=== PATIENT | male | born 1960 | race Hispanic/Latino ===

== ENCOUNTER → 2017-11-22 | Outpatient (CLI) | payer BC ==
[~2017-11-22] MED LIST: ADVAIR 250-501 EACH IH; ALBUTEROL2.5 MG/0.5 INH; ALIGN4 MG PO; AMLODIPINE BESYL5 MG PO; ATORVASTATIN CA10 MG PO; BACTRIM DS TAB1 EACH PO; CALCIUM CITRAT200 MG PO; COMBIVENT RESPIM4 GM IH; FLONASE16 GM; IPRAT-ALBUT 0.5-3 ML INH; LEVAQUIN750 MG PO; MAGNESIUM OXID400 MG PO; NORCO 5-325 TA1 EACH PO; PREDNISONE10 MG PO; RANITIDINE HCL150 MG PO; VITAMIN C1000 MG PO; ZINC SULFATE220 MG PO
--- NOTE | 2017-11-22 17:41 | Diagnostic Imaging Report ---
PROCEDURE:X-RAY LEFT KNEE, THREE OR MORE VIEWS COMPARISON:None. INDICATIONS:LEFT KNEE PAIN FINDINGS: The bones are well-mineralized. Mild medial and patellofemoral compartment degenerative changes with joint spurring. There are no fractures, subluxations, lytic or blastic lesions. There is no evidence of a joint effusion. CONCLUSION: Mild medial and patellofemoral compartment degenerative changes. No acute osseous abnormalities. Dictated by: Esau Martinez M.D. on 11/22/2017 at 17:40 Electronically approved by: Esau Martinez M.D. on 11/22/2017 at 17:40
== END ==
LOC: RAD 16:03
PROVIDERS: ATTEND Family Medicine
DX: M23.8X2 Other internal derangements of left knee (principal)

== ENCOUNTER 2020-08-21 17:26 | Inpatient (IN) | payer BC ==
[~2020-08-21] VITALS: Ht 185.4 cm; Wt 116.1 kg
[2020-08-21] MEDS ORDERED: MORPHINE SULFATE 2 MG/ML SYR 1ML IV STA (17:44)
[2020-08-21] MEDS ORDERED: ONDANSETRON HCL INJ 2MG/ML 2ML 2 MG/ML VIAL IV STA (17:44)
[2020-08-21 18:04] LABS: BASOPHILS # (AUTO) 0.1 (0.0-0.1); BASOPHILS % 0.4 % (0.0-1.0); EOSINOPHILS # (AUTO) 0.1 (0.0-0.4); HEMATOCRIT 44.9 % (38.2-49.6); HEMOGLOBIN 14.9 g/dL (14.0-18.0); LYMPHOCYTES # (AUTO) 1.2 (1.0-3.2); LYMPHOCYTES % 10.2 % (18.0-39.1); MEAN CORPUSCULAR HEMOGLOBIN 30.2 pg (28-32); MEAN CORPUSCULAR HGB CONC 33.2 g/dL (31-35); MEAN CORPUSCULAR VOLUME 90.9 fL (81-99); MONOCYTES # (AUTO) 0.1 (0.2-0.8); MONOCYTES % 1.2 % (4.4-11.3); NEUTROPHILS # (AUTO) 9.9 (2.1-6.9); NEUTROPHILS % 86.7 % (38.7-80.0); PLATELET COUNT 185 x10e3/uL (140-360); RED BLOOD COUNT 4.94 x10e6/uL (4.3-5.7); RED CELL DISTRIBUTION WIDTH 14.5 % (11.7-14.4)
[2020-08-21 18:09] LABS: INR 2.22; PARTIAL THROMBOPLASTIN TIME 26.7 seconds (23.8-35.5); PROTHROMBIN TIME 25.7 seconds (11.9-14.5)
[2020-08-21 18:17] LABS: ALANINE AMINOTRANSFERASE 22 IU/L (0-55); ALBUMIN 4.1 g/dL (3.5-5.0); ALKALINE PHOSPHATASE 94 IU/L (40-150); ANION GAP 16.6 mmol/L (8-16); BLOOD UREA NITROGEN 17 mg/dL (7-26); BUN/CREATININE RATIO 16 (6-25); CALCIUM 8.8 mg/dL (8.4-10.2); CARBON DIOXIDE 21 mmol/L (22-29); CHLORIDE 105 mmol/L (98-107); CREATININE, SERUM 1.06 mg/dL (0.72-1.25); EST GLOMERULAR FILTRATION RATE > 60 ML/MIN (60-); GLUCOSE 112 mg/dL (74-118); POTASSIUM 3.6 mmol/L (3.5-5.1); SODIUM 139 mmol/L (136-145)
[2020-08-21] MEDS ORDERED: HYDROMORPHONE 1MG/1ML INJ IV STA (19:42)
[2020-08-21 19:43] LABS: CLARITY,URINE HAZY (CLEAR); COLOR,URINE YELLOW (YELLOW)
[2020-08-21 19:44] LABS: BACTERIA,URINE MANY /HPF; EPITHELIAL CELLS,URINE MANY /LPF; KETONES,URINE NEGATIVE (NEGATIVE); LEUKOCYTE ESTERASE ,URINE NEGATIVE (NEGATIVE); MUCUS,URINE FEW (RARE); NITRITE,URINE POSITIVE (NEGATIVE); PROTEIN,URINE DIPSTICK NEGATIVE (NEGATIVE); RBC,URINE >50 /HPF (0-5); URINE UROBILINOGEN 0.2 mg/dL (0.2 - 1)
[2020-08-21 19:46] LABS: WBC,URINE (MAN) 21-50 /HPF (0-5)
[2020-08-21] MEDS ORDERED: ONDANSETRON HCL INJ 2MG/ML 2ML 2 MG/ML VIAL IV PRN (20:00)
[2020-08-21] MEDS ORDERED: PIPER-TAZ 3.375 GM 0 ML ONE (20:00)
[2020-08-21] MEDS ORDERED: CEFTRIAXONE SOD 1 GM/NS 50 ML 50 ML IV ONE (20:03)
[2020-08-21] MEDS: CEFTRIAXONE SOD 1 GM/NS 50 ML 50 ML IV SCH (20:04)
[2020-08-21] MEDS: SODIUM CHLORIDE 0.9% 1000ML 1,000 ML IV SCH (20:04)
[2020-08-21] MEDS ORDERED: SODIUM CHLORIDE 0.9% 1000ML 1,000 ML ONE (20:07)
[2020-08-21] MEDS: ACETAMINOPHEN 325 MG TAB PO PRN (20:28)
[2020-08-21] MEDS ORDERED: ACETAMINOPHEN 325 MG TAB ONE (20:33)
[2020-08-21 22:40] VITALS: BP 122/79
[2020-08-21 22:55] VITALS: BP 122/79
[2020-08-21] MEDS: HYDROMORPHONE 1MG/1ML INJ IV PRN (22:57)
[2020-08-21] MEDS ORDERED: WARFARIN SODIUM3 MG PO (23:13)
[2020-08-21] MEDS ORDERED: LOSARTAN POTASS25 MG PO (23:13)
[2020-08-21] MEDS ORDERED: WARFARIN SODIU2.5 MG PO (23:13)
[2020-08-22] VITALS (9 sets, daily range): BP systolic 85–128; BP diastolic 54–82
[2020-08-22] MEDS ORDERED: IPRATROPIUM/ALBUTEROL SULFATE 4 GM INH INH PRN (03:45)
[2020-08-22] MEDS: HYDROMORPHONE 1MG/1ML INJ IV PRN ×3 (03:59→14:18)
[2020-08-22] MEDS: SODIUM CHLORIDE 0.9% 1000ML 1,000 ML IV SCH ×2 (04:40→14:19)
[2020-08-22 05:31] LABS: BASOPHILS % 0.3 % (0.0-1.0); EOSINOPHILS % 0.2 % (0.0-6.0); HEMATOCRIT 40.5 % (38.2-49.6); HEMOGLOBIN 13.4 g/dL (14.0-18.0); LYMPHOCYTES # (AUTO) 0.5 (1.0-3.2); LYMPHOCYTES % 4.8 % (18.0-39.1); MEAN CORPUSCULAR HGB CONC 33.1 g/dL (31-35); MEAN CORPUSCULAR VOLUME 90.8 fL (81-99); MONOCYTES # (AUTO) 0.1 (0.2-0.8); MONOCYTES % 0.8 % (4.4-11.3); NEUTROPHILS # (AUTO) 10.4 (2.1-6.9); NEUTROPHILS % 93.5 % (38.7-80.0); PLATELET COUNT 136 x10e3/uL (140-360); RED BLOOD COUNT 4.46 x10e6/uL (4.3-5.7); RED CELL DISTRIBUTION WIDTH 14.9 % (11.7-14.4)
[2020-08-22 05:45] LABS: INR 2.4; PROTHROMBIN TIME 27.3 seconds (11.9-14.5)
[2020-08-22 05:46] LABS: PARTIAL THROMBOPLASTIN TIME 35.4 seconds (23.8-35.5)
[2020-08-22 05:54] LABS: ALBUMIN 3.1 g/dL (3.5-5.0); ALBUMIN/GLOBULIN RATIO 0.9 (0.8-2.0); ANION GAP 17.1 mmol/L (8-16); CREATININE, SERUM 1.36 mg/dL (0.72-1.25); POTASSIUM 4.1 mmol/L (3.5-5.1)
[2020-08-22 07:51] LABS: BAND NEUTROPHILS % (MANUAL) 9 %; EOSINOPHILS % (MANUAL) 1 % (0-7); LYMPHOCYTES % (MANUAL) 4 % (19-48); METAMYELOCYTES % (MANUAL) 4 % (0-0); NEUTROPHILS % (MANUAL) 82 % (40-74); PLATELET ESTIMATE SLIGHTLY DECREASED; PLATELET MORPHOLOGY COMMENT NORMAL
[2020-08-22 07:52] LABS: RBC MORPHOLOGY COMMENT NORMAL
[2020-08-22] MEDS: SALMETEROL/FLUTICASONE 250/50 INH SCH ×2 (09:00→17:00)
[2020-08-22] MEDS: ACETAMINOPHEN 325 MG TAB PO PRN (19:22)
[2020-08-22] MEDS: CEFTRIAXONE SOD 1 GM/NS 50 ML 50 ML IV SCH (19:24)
[2020-08-22] MEDS: ATORVASTATIN 10 MG TAB PO SCH (20:25)
[2020-08-23] VITALS (7 sets, daily range): BP systolic 90–111; BP diastolic 58–77
[2020-08-23] MEDS: SODIUM CHLORIDE 0.9% 1000ML 1,000 ML IV SCH ×2 (02:00→13:00)
[2020-08-23] MEDS ORDERED: SODIUM CHLORIDE 0.9% 500ML 500 ML IV STA (03:51)
[2020-08-23 04:51] LABS: BASOPHILS % 0.1 % (0.0-1.0); EOSINOPHILS # (AUTO) 0.1 (0.0-0.4); EOSINOPHILS % 0.3 % (0.0-6.0); HEMATOCRIT 36.8 % (38.2-49.6); HEMOGLOBIN 11.9 g/dL (14.0-18.0); LYMPHOCYTES # (AUTO) 1.1 (1.0-3.2); LYMPHOCYTES % 3.8 % (18.0-39.1); MEAN CORPUSCULAR HEMOGLOBIN 30.4 pg (28-32); MEAN CORPUSCULAR HGB CONC 32.3 g/dL (31-35); MEAN CORPUSCULAR VOLUME 93.9 fL (81-99); MONOCYTES # (AUTO) 0.5 (0.2-0.8); MONOCYTES % 1.7 % (4.4-11.3); PLATELET COUNT 91 x10e3/uL (140-360); RED BLOOD COUNT 3.92 x10e6/uL (4.3-5.7); RED CELL DISTRIBUTION WIDTH 15.7 % (11.7-14.4)
[2020-08-23 05:44] LABS: ALBUMIN 2.6 g/dL (3.5-5.0); ALBUMIN/GLOBULIN RATIO 0.7 (0.8-2.0); MAGNESIUM 1.4 MG/DL (1.3-2.1)
[2020-08-23 05:48] LABS: CREATININE, SERUM 2.83 mg/dL (0.72-1.25)
[2020-08-23 08:36] LABS: INR 2.32; PROTHROMBIN TIME 26.6 seconds (11.9-14.5)
[2020-08-23 08:37] LABS: PARTIAL THROMBOPLASTIN TIME 51.1 seconds (23.8-35.5)
[2020-08-23] MEDS: SALMETEROL/FLUTICASONE 250/50 INH SCH ×2 (09:00→16:28)
[2020-08-23 09:14] LABS: BAND NEUTROPHILS % (MANUAL) 16 %; LYMPHOCYTES % (MANUAL) 4 % (19-48); MONOCYTES % (MANUAL) 1 % (3.4-9.0); NEUTROPHILS % (MANUAL) 79 % (40-74)
[2020-08-23 09:15] LABS: ANISOCYTOSIS SLIGHT; PLATELET ESTIMATE SLIGHTLY DECREASED; PLATELET MORPHOLOGY COMMENT NORMAL; RBC MORPHOLOGY COMMENT NORMAL
[2020-08-23] MEDS ORDERED: PHYTONADIONE 10 MG/ML AMP SQ ONE (10:15)
[2020-08-23] MEDS: ATORVASTATIN 10 MG TAB PO SCH (20:38)
[2020-08-23] MEDS: CEFTRIAXONE SOD 1 GM/NS 50 ML 50 ML IV SCH (20:38)
[2020-08-24] VITALS (8 sets, daily range): BP systolic 93–121; BP diastolic 55–88
[2020-08-24] MEDS: SODIUM CHLORIDE 0.9% 1000ML 1,000 ML IV SCH ×3 (01:00→15:48)
[2020-08-24] MEDS ORDERED: SODIUM CHLORIDE 0.9% 1000ML 1,000 ML IV ONE (04:45)
[2020-08-24 05:01] LABS: BASOPHILS # (AUTO) 0.1 (0.0-0.1); BASOPHILS % 0.5 % (0.0-1.0); EOSINOPHILS # (AUTO) 0.1 (0.0-0.4); EOSINOPHILS % 0.4 % (0.0-6.0); HEMATOCRIT 33.8 % (38.2-49.6); HEMOGLOBIN 11.5 g/dL (14.0-18.0); LYMPHOCYTES # (AUTO) 1.2 (1.0-3.2); LYMPHOCYTES % 4.6 % (18.0-39.1); MEAN CORPUSCULAR VOLUME 88.3 fL (81-99); MONOCYTES # (AUTO) 0.5 (0.2-0.8); MONOCYTES % 1.9 % (4.4-11.3); NEUTROPHILS # (AUTO) 23.8 (2.1-6.9); PLATELET COUNT 76 x10e3/uL (140-360); RED BLOOD COUNT 3.83 x10e6/uL (4.3-5.7); RED CELL DISTRIBUTION WIDTH 15.6 % (11.7-14.4)
[2020-08-24 05:15] LABS: INR 1.41
[2020-08-24 05:25] LABS: ALBUMIN 2.3 g/dL (3.5-5.0); ALBUMIN/GLOBULIN RATIO 0.7 (0.8-2.0); ANION GAP 13.5 mmol/L (8-16); CALCIUM 8.4 mg/dL (8.4-10.2); CREATININE, SERUM 1.57 mg/dL (0.72-1.25); POTASSIUM 3.5 mmol/L (3.5-5.1)
[2020-08-24] MEDS ORDERED: PHYTONADIONE 1 MG/0.5 ML AMP SQ ONE (05:30)
[2020-08-24] MEDS ORDERED: PHYTONADIONE 10 MG/ML AMP SC ONE (05:45)
[2020-08-24 06:31] LABS: EOSINOPHILS % (MANUAL) 1 % (0-7); LYMPHOCYTES % (MANUAL) 6 % (19-48); MONOCYTES % (MANUAL) 4 % (3.4-9.0); NEUTROPHILS % (MANUAL) 89 % (40-74)
[2020-08-24 06:32] LABS: ANISOCYTOSIS SLIGHT; PLATELET ESTIMATE MODERATELY DECREASED; PLATELET MORPHOLOGY COMMENT NORMAL; RBC MORPHOLOGY COMMENT NORMAL
[2020-08-24] MEDS ORDERED: SODIUM CHLORIDE 0.9% 250ML 250 ML ONE (08:31)
[2020-08-24] MEDS ORDERED: IOPAMIDOL 300MG/ML 100 ML INFUS..BTL IV ONE (08:31)
[2020-08-24] MEDS ORDERED: LIDOCAINE HCL 1% LOCAL INJ 20 ML VIAL ONE (08:31)
[2020-08-24] MEDS: SALMETEROL/FLUTICASONE 250/50 INH SCH ×2 (09:00→15:48)
[2020-08-24] MEDS ORDERED: FENTANYL CITRATE/PF 100MCG/2 ML INJ ONE (09:03)
[2020-08-24] MEDS ORDERED: MIDAZOLAM HCL 2 MG/2 ML VIAL ONE (09:03)
[2020-08-24 10:49] LABS: CLARITY,URINE TURBID (CLEAR); COLOR,URINE RED (YELLOW); LEUKOCYTE ESTERASE ,URINE 2+ (NEGATIVE); NITRITE,URINE NEGATIVE (NEGATIVE)
[2020-08-24 10:50] LABS: KETONES,URINE NEGATIVE (NEGATIVE); PROTEIN,URINE DIPSTICK 3+ (NEGATIVE); URINE UROBILINOGEN 0.2 mg/dL (0.2 - 1)
[2020-08-24 10:53] LABS: BACTERIA,URINE FEW /HPF; RBC,URINE >50 /HPF (0-5); WBC,URINE (MAN) 21-50 /HPF (0-5)
[2020-08-24 12:23] LABS: INR 1.33; PROTHROMBIN TIME 17.1 seconds (11.9-14.5)
[2020-08-24] MEDS: HYDROMORPHONE 1MG/1ML INJ IV PRN (12:52)
[2020-08-24] MEDS: SODIUM BICARBONATE 650 MG TAB PO SCH (17:38)
[2020-08-24] MEDS: CEFTRIAXONE SOD 1 GM/NS 50 ML 50 ML IV SCH (20:42)
[2020-08-24] MEDS: ATORVASTATIN 10 MG TAB PO SCH (20:44)
[2020-08-25] VITALS (8 sets, daily range): BP systolic 132–141; BP diastolic 80–92
[2020-08-25] MEDS: SODIUM CHLORIDE 0.9% 1000ML 1,000 ML IV SCH ×2 (01:40→13:45)
[2020-08-25 03:18] LABS: CLARITY,URINE CLOUDY (CLEAR); COLOR,URINE YELLOW (YELLOW); KETONES,URINE NEGATIVE (NEGATIVE); LEUKOCYTE ESTERASE ,URINE SMALL (NEGATIVE); NITRITE,URINE NEGATIVE (NEGATIVE); PROTEIN,URINE DIPSTICK 2+ (NEGATIVE); URINE UROBILINOGEN 0.2 mg/dL (0.2 - 1)
[2020-08-25 03:22] LABS: BACTERIA,URINE FEW /HPF; EPITHELIAL CELLS,URINE RARE /LPF; RBC,URINE >50 /HPF (0-5)
[2020-08-25 03:32] LABS: CREATININE,URINE RANDOM 23.47 mg/dL (63-166); TOTAL PROTEIN, URINE 53.9 mg/dL (1-14)
[2020-08-25 05:16] LABS: BASOPHILS # (AUTO) 0.1 (0.0-0.1); BASOPHILS % 0.7 % (0.0-1.0); EOSINOPHILS # (AUTO) 0.2 (0.0-0.4); EOSINOPHILS % 1.7 % (0.0-6.0); HEMATOCRIT 38.2 % (38.2-49.6); HEMOGLOBIN 12.9 g/dL (14.0-18.0); LYMPHOCYTES # (AUTO) 1.3 (1.0-3.2); LYMPHOCYTES % 9.3 % (18.0-39.1); MEAN CORPUSCULAR HEMOGLOBIN 29.9 pg (28-32); MEAN CORPUSCULAR HGB CONC 33.8 g/dL (31-35); MEAN CORPUSCULAR VOLUME 88.6 fL (81-99); MONOCYTES # (AUTO) 0.9 (0.2-0.8); MONOCYTES % 6.5 % (4.4-11.3); NEUTROPHILS # (AUTO) 11.1 (2.1-6.9); NEUTROPHILS % 80.3 % (38.7-80.0); PLATELET COUNT 91 x10e3/uL (140-360); RED BLOOD COUNT 4.31 x10e6/uL (4.3-5.7); RED CELL DISTRIBUTION WIDTH 15.4 % (11.7-14.4)
[2020-08-25 05:50] LABS: ALANINE AMINOTRANSFERASE 29 IU/L (0-55); ALBUMIN 2.6 g/dL (3.5-5.0); ALBUMIN/GLOBULIN RATIO 0.7 (0.8-2.0); ALKALINE PHOSPHATASE 87 IU/L (40-150); ANION GAP 12.5 mmol/L (8-16); BLOOD UREA NITROGEN 19 mg/dL (7-26); BUN/CREATININE RATIO 27 (6-25); CALCIUM 8.7 mg/dL (8.4-10.2); CARBON DIOXIDE 21 mmol/L (22-29); CHLORIDE 110 mmol/L (98-107); CREATININE, SERUM 0.71 mg/dL (0.72-1.25); EST GLOMERULAR FILTRATION RATE > 60 ML/MIN (60-); GLUCOSE 116 mg/dL (74-118); POTASSIUM 3.5 mmol/L (3.5-5.1); SODIUM 140 mmol/L (136-145)
[2020-08-25] MEDS: SALMETEROL/FLUTICASONE 250/50 INH SCH ×2 (07:33→17:00)
[2020-08-25] MEDS: SODIUM BICARBONATE 650 MG TAB PO SCH ×2 (08:59→15:33)
[2020-08-25 11:17] LABS: EOSINOPHILS % (MANUAL) 1 % (0-7); LYMPHOCYTES % (MANUAL) 10 % (19-48); MONOCYTES % (MANUAL) 3 % (3.4-9.0); NEUTROPHILS % (MANUAL) 86 % (40-74); PLATELET ESTIMATE SLIGHTLY DECREASED; PLATELET MORPHOLOGY COMMENT RARE EDTA CLUMPING; RBC MORPHOLOGY COMMENT NORMAL
[2020-08-25] MEDS: ACETAMINOPHEN 325 MG TAB PO PRN (18:57)
[2020-08-25] MEDS: CEFTRIAXONE SOD 1 GM/NS 50 ML 50 ML IV SCH (20:34)
[2020-08-25] MEDS: ATORVASTATIN 10 MG TAB PO SCH (20:35)
[2020-08-26] VITALS: BP 156/95
[2020-08-26] MEDS ORDERED: LOSARTAN POTASSIUM 100 MG TAB PO ONE (01:15)
[2020-08-26] MEDS: SODIUM CHLORIDE 0.9% 1000ML 1,000 ML IV SCH ×2 (01:21→12:02)
[2020-08-26 04:00] VITALS: BP 122/84
[2020-08-26] MEDS: SALMETEROL/FLUTICASONE 250/50 INH SCH (07:05)
[2020-08-26 08:00] VITALS: BP 142/85
[2020-08-26] MEDS: SODIUM BICARBONATE 650 MG TAB PO SCH (08:29)
[2020-08-26 08:32] VITALS: BP 122/84
[2020-08-26 12:05] VITALS: BP 145/93
[2020-08-26] MEDS ORDERED: CEFUROXIME500 MG PO (14:04)
[2020-08-27] MEDS ORDERED: LOSARTAN POTASSIUM 100 MG TAB PO SCH (09:00)
== END 2020-08-26 15:51 | disposition home or self-care (01) | DRG 872 ==
LOC: ER 17:34 → ERHOLD 19:56 → MED/SURG 22:05
PROVIDERS: ADMIT Internal Medicine; ATTEND Internal Medicine
PROC: 0T9030Z Drainage of Right Kidney with Drainage Device, Percutaneous Approach (ICD-10-PCS; principal; 2020-08-24)
DX: A41.9 Sepsis, unspecified organism (principal); N20.1 Calculus of ureter; N39.0 Urinary tract infection, site not specified; N17.9 Acute kidney failure, unspecified; D68.9 Coagulation defect, unspecified; N13.6 Pyonephrosis; E66.01 Morbid (severe) obesity due to excess calories; J44.9 Chronic obstructive pulmonary disease, unspecified; E78.5 Hyperlipidemia, unspecified; Z68.33 Body mass index [BMI] 33.0-33.9, adult; I10 Essential (primary) hypertension; Z20.828 Contact with and (suspected) exposure to other viral communicable diseases; Z86.711 Personal history of pulmonary embolism; Z79.01 Long term (current) use of anticoagulants; B96.20 Unspecified Escherichia coli [E. coli] as the cause of diseases classified elsewhere; D69.59 Other secondary thrombocytopenia
CPT/HCPCS: 36415; 50430; 74176; 74470; 76770; 76942; 80053; 81001; 82570; 83605; 83735; 84156; 85025; 85610; 85730; 87040; 87086; 87186; 94664; 96361; 99152; 99153; 99284; C1729; C1769; J0696; J1170; J2001; J2250; J2270; J2405; J2543; J3010; J3430; J7030; J7040; J7050; Q9967; U0002

== ENCOUNTER → 2020-09-30 | Day surgery (SDC) | payer BC ==
[2020-09-28 09:27] LABS: BASOPHILS # (AUTO) 0.1 (0.0-0.1); BASOPHILS % 0.7 % (0.0-1.0); EOSINOPHILS # (AUTO) 0.2 (0.0-0.4); EOSINOPHILS % 1.6 % (0.0-6.0); HEMATOCRIT 43.6 % (38.2-49.6); HEMOGLOBIN 14.3 g/dL (14.0-18.0); LYMPHOCYTES # (AUTO) 1.9 (1.0-3.2); LYMPHOCYTES % 17.4 % (18.0-39.1); MEAN CORPUSCULAR HEMOGLOBIN 29.6 pg (28-32); MEAN CORPUSCULAR HGB CONC 32.8 g/dL (31-35); MEAN CORPUSCULAR VOLUME 90.3 fL (81-99); MONOCYTES # (AUTO) 0.6 (0.2-0.8); MONOCYTES % 5.9 % (4.4-11.3); NEUTROPHILS % 73.8 % (38.7-80.0); PLATELET COUNT 230 x10e3/uL (140-360); RED BLOOD COUNT 4.83 x10e6/uL (4.3-5.7); RED CELL DISTRIBUTION WIDTH 14.6 % (11.7-14.4)
[~2020-09-30] MED LIST changes: +CEFTRIAXONE SOD 1 GM/NS 50 ML 50 ML IV ONE; +CEFUROXIME500 MG PO; +DEXAMETHASONE SOD PHOS INJ 4 MG/ML VIAL ONE; +LIDOCAINE HCL 2% LOCAL INJ 5 ML SDV VIAL INJ ONE; +LOSARTAN POTASS25 MG PO; +ONDANSETRON HCL INJ 2MG/ML 2ML 2 MG/ML VIAL ONE; +PROPOFOL IV EMULSION 10 MG/ML 20 ML VIAL ONE; +SEVOFLURANE INHAL SOLN 250 ML PEN BTL ONE; +WARFARIN SODIU2.5 MG PO; +WARFARIN SODIUM3 MG PO
[2020-09-30 06:49] LABS: INR 1.06; PROTHROMBIN TIME 14.5 seconds (11.9-14.5)
[2020-09-30 06:50] LABS: PARTIAL THROMBOPLASTIN TIME 26.8 seconds (23.8-35.5)
[2020-09-30 08:20] VITALS: BP 103/78
== END | disposition home or self-care (01) ==
LOC: OR 05:23
PROVIDERS: ATTEND Urology
DX: N20.1 Calculus of ureter (principal); Z93.6 Other artificial openings of urinary tract status; N20.0 Calculus of kidney; N39.0 Urinary tract infection, site not specified; N13.30 Unspecified hydronephrosis; D68.8 Other specified coagulation defects; I10 Essential (primary) hypertension; J45.909 Unspecified asthma, uncomplicated; Z88.6 Allergy status to analgesic agent; Z88.8 Allergy status to other drugs, medicaments and biological substances; Z01.810 Encounter for preprocedural cardiovascular examination; Z01.812 Encounter for preprocedural laboratory examination; Z01.818 Encounter for other preprocedural examination; Z20.822 Contact with and (suspected) exposure to COVID-19; Z79.01 Long term (current) use of anticoagulants; Z68.33 Body mass index [BMI] 33.0-33.9, adult; Z86.711 Personal history of pulmonary embolism
CPT/HCPCS: 36415 ×2; 50590; 74018; 85025; 85610; 85730; 93005; J0696; J1100; J2001; J2405; J2704; U0002

== ENCOUNTER → 2020-11-10 | Outpatient (CLI) | payer BC ==
[~2020-11-10] MED LIST changes: -CEFTRIAXONE SOD 1 GM/NS 50 ML 50 ML IV ONE; +CIPRO250 MG PO; -DEXAMETHASONE SOD PHOS INJ 4 MG/ML VIAL ONE; +IOPAMIDOL 300MG/ML 100 ML INFUS..BTL IV ONE; +LIDOCAINE HCL 1% LOCAL INJ 20 ML VIAL ONE; -LIDOCAINE HCL 2% LOCAL INJ 5 ML SDV VIAL INJ ONE; -ONDANSETRON HCL INJ 2MG/ML 2ML 2 MG/ML VIAL ONE; -PROPOFOL IV EMULSION 10 MG/ML 20 ML VIAL ONE; -SEVOFLURANE INHAL SOLN 250 ML PEN BTL ONE; +SODIUM CHLORIDE 0.9% 250ML 250 ML ONE
== END ==
LOC: DX 12:56
PROVIDERS: ATTEND Urology
DX: T19.9XXD Foreign body in genitourinary tract, part unspecified, subsequent encounter (principal); N13.30 Unspecified hydronephrosis
CPT/HCPCS: 50431; C1769; J2001; J7050; Q9967

== ENCOUNTER → 2020-11-11 | Day surgery (SDC) | payer BC ==
[2020-11-08 09:45] LABS: BASOPHILS # (AUTO) 0.1 (0.0-0.1); BASOPHILS % 0.6 % (0.0-1.0); EOSINOPHILS # (AUTO) 0.2 (0.0-0.4); EOSINOPHILS % 1.6 % (0.0-6.0); HEMATOCRIT 40.8 % (38.2-49.6); HEMOGLOBIN 13.3 g/dL (14.0-18.0); LYMPHOCYTES # (AUTO) 2.2 (1.0-3.2); LYMPHOCYTES % 19.2 % (18.0-39.1); MEAN CORPUSCULAR HEMOGLOBIN 29.4 pg (28-32); MEAN CORPUSCULAR HGB CONC 32.6 g/dL (31-35); MEAN CORPUSCULAR VOLUME 90.3 fL (81-99); MONOCYTES # (AUTO) 0.7 (0.2-0.8); MONOCYTES % 6.4 % (4.4-11.3); NEUTROPHILS # (AUTO) 8.3 (2.1-6.9); NEUTROPHILS % 71.5 % (38.7-80.0); PLATELET COUNT 321 x10e3/uL (140-360); RED BLOOD COUNT 4.52 x10e6/uL (4.3-5.7); RED CELL DISTRIBUTION WIDTH 14.6 % (11.7-14.4)
[~2020-11-11] MED LIST changes: +CEFTRIAXONE SOD 1 GM VIAL ONE; +DEXAMETHASONE SOD PHOS INJ 4 MG/ML VIAL ONE; +FENTANYL CITRATE/PF 100MCG/2 ML INJ ONE; -IOPAMIDOL 300MG/ML 100 ML INFUS..BTL IV ONE; -LIDOCAINE HCL 1% LOCAL INJ 20 ML VIAL ONE; +LIDOCAINE HCL 2% LOCAL INJ 5 ML SDV VIAL INJ ONE; +MIDAZOLAM HCL 2 MG/2 ML VIAL ONE; +ONDANSETRON HCL INJ 2MG/ML 2ML 2 MG/ML VIAL ONE; +PROPOFOL IV EMULSION 10 MG/ML 20 ML VIAL ONE; +SEVOFLURANE INHAL SOLN 250 ML PEN BTL ONE; -SODIUM CHLORIDE 0.9% 250ML 250 ML ONE
[2020-11-11 06:51] LABS: INR 1.05; PARTIAL THROMBOPLASTIN TIME 28.1 seconds (23.8-35.5); PROTHROMBIN TIME 14.4 seconds (11.9-14.5)
[2020-11-11 08:33] VITALS: BP 122/76
== END | disposition home or self-care (01) ==
LOC: OR 05:41
PROVIDERS: ATTEND Urology
DX: N20.0 Calculus of kidney (principal); N13.30 Unspecified hydronephrosis; N39.0 Urinary tract infection, site not specified; N40.1 Benign prostatic hyperplasia with lower urinary tract symptoms; I10 Essential (primary) hypertension; Z01.812 Encounter for preprocedural laboratory examination; Z01.818 Encounter for other preprocedural examination; Z20.822 Contact with and (suspected) exposure to COVID-19; Z79.01 Long term (current) use of anticoagulants; Z68.33 Body mass index [BMI] 33.0-33.9, adult; Z86.711 Personal history of pulmonary embolism
CPT/HCPCS: 36415 ×2; 50590; 71046; 85025; 85610; 85730; J0696; J1100; J2001; J2250; J2405; J2704; J3010; U0002

== ENCOUNTER → 2020-12-01 | Outpatient (CLI) | payer BC ==
[~2020-12-01] MED LIST changes: -CEFTRIAXONE SOD 1 GM VIAL ONE; -DEXAMETHASONE SOD PHOS INJ 4 MG/ML VIAL ONE; -FENTANYL CITRATE/PF 100MCG/2 ML INJ ONE; +IOPAMIDOL 300MG/ML 100 ML INFUS..BTL IV ONE; -LIDOCAINE HCL 2% LOCAL INJ 5 ML SDV VIAL INJ ONE; -MIDAZOLAM HCL 2 MG/2 ML VIAL ONE; -ONDANSETRON HCL INJ 2MG/ML 2ML 2 MG/ML VIAL ONE; -PROPOFOL IV EMULSION 10 MG/ML 20 ML VIAL ONE; -SEVOFLURANE INHAL SOLN 250 ML PEN BTL ONE
== END ==
LOC: DX 12:39
PROVIDERS: ATTEND Urology
DX: N20.0 Calculus of kidney (principal); Z43.6 Encounter for attention to other artificial openings of urinary tract
CPT/HCPCS: 50389; 74425; Q9967

== ENCOUNTER 2025-03-27 11:55 | Emergency (ER) | payer BC, MEDICARE ==
[~2025-03-27] VITALS: Ht 185.4 cm; Wt 119.7 kg
[~2025-03-27 11:55] MED LIST changes: -IOPAMIDOL 300MG/ML 100 ML INFUS..BTL IV ONE
[2025-03-27 12:15] VITALS: TEMP 98
[2025-03-27 12:38] LABS: BASOPHILS % 0.5 % (0.0-1.0); EOSINOPHILS % 1.0 % (0.0-6.0); LYMPHOCYTES % 14.3 % (18.0-39.1); MONOCYTES % 7.3 % (4.4-11.3); NEUTROPHILS % 76.4 % (38.7-80.0); RED CELL DISTRIBUTION WIDTH 14.5 % (11.7-14.4)
[2025-03-27] MEDS: SODIUM CHLORIDE 0.9% 1000ML 1,000 ML IV STA (12:43)
[2025-03-27] MEDS: ONDANSETRON HCL INJ 2MG/ML 2ML 2 MG/ML VIAL IV STA (12:43)
[2025-03-27 12:50] LABS: INR 1.27
[2025-03-27 12:58] LABS: EST GLOMERULAR FILTRATION RATE 90.0 ML/MIN (>=60)
[2025-03-27 13:32] LABS: LEUKOCYTE ESTERASE ,URINE NEGATIVE (NEGATIVE); PROTEIN,URINE DIPSTICK NEGATIVE (NEGATIVE); URINE UROBILINOGEN 0.2 mg/dL (0.2 - 1); WBC,URINE (MAN) 0-5 /HPF (0-5)
[2025-03-27 13:33] LABS: EPITHELIAL CELLS,URINE FEW /LPF
[2025-03-27 15:49] VITALS: PULSE 83; RESP 19
[2025-03-27] MEDS ORDERED: IOPAMIDOL 370 MG/ML 100 ML INFUS..BTL INJ ONE (16:23)
[2025-03-27] MEDS ORDERED: ONDANSETRON ODT4 MG PO (16:37)
[2025-03-27 17:10] VITALS: BP 140/83; PULSE 82; RESP 18; TEMP 98; O2SAT 95
== END 2025-03-27 17:16 | disposition home or self-care (01) ==
LOC: ER 12:04
DX: R11.2 Nausea with vomiting, unspecified (principal); K92.2 Gastrointestinal hemorrhage, unspecified; I10 Essential (primary) hypertension; E78.5 Hyperlipidemia, unspecified; Z86.718 Personal history of other venous thrombosis and embolism; F17.210 Nicotine dependence, cigarettes, uncomplicated
CPT/HCPCS: 36415; 71045; 74174; 80053; 81001; 83735; 84484; 85025; 85610; 85730; 87086; 99284; J2405; J2470; J7030; Q9967